=== PATIENT | female | born 1965 | race American Indian/Alaskan Native ===

== ENCOUNTER 2019-03-09 14:12 | Emergency (ER) | payer SELFPAY ==
[2019-03-09 15:21] LABS: Bilirubin,Urine NEG (Negative); Blood,Urine NEG (Negative); Color,Urine Yellow (Yellow); Mucus,Urine FEW /HPF; Protein,Urine <15 mg/dL mg/dL (Negative); Urobilinogen,Urine < 2.0 mg/dL (<2.0)
[2019-03-09] MEDS ORDERED: KETOROLAC 60 MG/2 ML INJ IM ONE (18:25)
[2019-03-09] MEDS ORDERED: dexAMETHasone 20 MG/5 ML VIAL IM ONE (18:25)
[2019-03-09] MEDS ORDERED: NITROFURANTOIN MONOHYD/M-CRYST 100 MG CAP PO ONE (18:26)
--- NOTE | 2019-03-09 19:28 | Emergency Department Report ---
ED General Adult HPI - General Chief complaint: Back Pain/Injury Stated complaint: UTI/PAIN ALL OVER Time Seen by Provider: 03/09/19 18:10 Source: patient Mode of arrival: Ambulatory Limitations: No Limitations - History of Present Illness Initial comments: Patient is a 53-year-old -[place] female who is presenting with abdominal pain and dysuria. Patient states she has a history of lupus and has had increased pain in her bilateral hips extending down into her bilateral lower extremities as well as her hands for the past week. Patient states she has not been on steroid therapy lately. Patient denies fevers chills nausea vomiting diarrhea. Pain is 8 out of 10 in severity hers worse with movement. Patient also missed timeframes had some dysuria and urinary frequency. Patient states she has suprapubic discomfort radiates to her lower back. Severity scale (0 -10): 10 - Related Data Previous Rx's Medication Instructions Recorded Last Taken Type HYDROcodone/APAP 5-325 [[place] 1 each PO Q6HR PRN #14 tablet 03/09/19 Unknown Rx 5/325] Nitrofurantoin [place]/M-[place]ryst 100 mg PO Q12HR #14 capsule 03/09/19 Unknown Rx [Macrobid CAP] predniSONE [Deltasone] 10 mg PO .TAPER #21 tab 03/09/19 Unknown Rx Allergies Allergy/AdvReac Type Severity Reaction Status Date / Time sulfamethoxazole Allergy Unknown Verified 03/09/19 14:15 [From Bactrim] trimethoprim [From Bactrim] Allergy Unknown Verified 03/09/19 14:15 ED Review of Systems ROS: Stated complaint: UTI/PAIN ALL OVER Other details as noted in HPI Comment: All other systems reviewed and negative ED Past Medical Hx - Past Medical History Previous Medical History?: Yes Additional medical history: lupus, recurrent UTI - Surgical History Past Surgical History?: No - Social History Smoking Status: Never Smoker - Medications Home Medications: Home Medications Medication Instructions Recorded Confirmed Last Taken Type HYDROcodone/APAP 5-325 [[place] 1 each PO Q6HR PRN #14 tablet 03/09/19 Unknown Rx 5/325] Nitrofurantoin [place]/M-[place] 100 mg PO Q12HR #14 capsule 03/09/19 Unknown Rx [Macrobid CAP] predniSONE [Deltasone] 10 mg PO .TAPER #21 tab 03/09/19 Unknown Rx ED Physical Exam - General Limitations: No Limitations General appearance: alert, anxious (pacing back and forth in the room stating that she is in a great deal of pain), in distress - Head Head exam: Present: atraumatic, normocephalic - Eye Eye exam: Present: normal appearance, PERRL, EOMI - ENT ENT exam: Present: mucous membranes moist - Neck Neck exam: Present: normal inspection - Respiratory Respiratory exam: Present: normal lung sounds bilaterally. Absent: respiratory distress, wheezes, rales, rhonchi - Cardiovascular Cardiovascular Exam: Present: regular rate, normal rhythm, normal heart sounds. Absent: systolic murmur, diastolic murmur, rubs, gallop - GI/Abdominal GI/Abdominal exam: Present: soft, tenderness (suprapubic), normal bowel sounds. Absent: distended, guarding, rebound, rigid - Extremities Exam Extremities exam: Present: normal inspection - Back Exam Back exam: Present: normal inspection - Neurological Exam Neurological exam: Present: alert, oriented X3 - Psychiatric Psychiatric exam: Present: normal affect, normal mood - Skin Skin exam: Present: warm, dry, intact, normal color. Absent: rash ED Course Vital Signs 03/09/19 03/09/19 03/09/19 14:17 14:19 19:13 Temperature 98.0 F Pulse Rate 85 Respiratory 16 Rate Blood Pressure 88/66 120/64 O2 Sat by Pulse 97 Oximetry 03/09/19 19:14 Temperature Pulse Rate 73 Respiratory 18 Rate Blood Pressure O2 Sat by Pulse 99 Oximetry ED Medical Decision Making - Lab Data Labs 03/09/19 14:52 Urine Color Yellow Urine Turbidity Slightly-cloudy Urine pH 5.0 Ur Specific [place] 1.014 Urine Protein <15 mg/dl Urine Glucose (UA) Neg Urine Ketones Neg Urine Blood Neg Urine Nitrite Neg Urine Bilirubin Neg Urine Urobilinogen < 2.0 Ur Leukocyte Esterase Lg Urine WBC (Auto) 7.0 H Urine RBC (Auto) 1.0 U Epithel Cells (Auto) 2.0 Urine Mucus Few - Medical Decision Making Patient with evidence of a UTI. Patient restarted on antibiotics. Patient also was symptoms suggestive of a exacerbation of her systemic lupus. Patient started on Decadron be discharged on Medrol Dosepak. Patient's initial blood pressure reading was low badly this was an error. Patient was agitated and walking back and forth in her own with no complaints of any dizziness. Recheck of the blood pressure was done which was within normal limits. Critical care attestation.: If time is entered above; I have spent that time in minutes in the direct care of this critically ill patient, excluding procedure time. ED Disposition Clinical Impression: Acute cystitis Qualifiers: Hematuria presence: without hematuria Qualified Code(s): N30.00 - Acute cystitis without hematuria Lupus (systemic lupus erythematosus) Qualifiers: Systemic lupus erythematosus type: unspecified Systemic lupus erythematosus organ involvement: unspecified Qualified Code(s): M32.9 - Systemic lupus erythematosus, unspecified Disposition: DC- TO HOME OR SELFCARE Is pt being admited?: No Does the pt Need Aspirin: No Condition: Stable Instructions: Urinary Tract Infection in Women (ED) Referrals: RAJ FINE MD [Staff Physician] - 3-5 Days Time of Disposition: 19:30
[2019-03-09 19:43] VITALS: BP 115/62
== END 2019-03-09 19:41 | disposition home or self-care (01) ==
LOC: ED 14:12
DX: N30.00 Acute cystitis without hematuria (principal); M32.9 Systemic lupus erythematosus, unspecified; Z79.899 Other long term (current) drug therapy; Z88.8 Allergy status to other drugs, medicaments and biological substances
CPT/HCPCS: 81001; 96372; 99283; J1100; J1885